=== PATIENT | male | born 1980 ===

== ENCOUNTER 2024-02-10 23:17 | Inpatient (IN) | payer OTHER ==
[~2024-02-10] VITALS: Ht 175.3 cm; Wt 106.8 kg
[2024-02-10 23:54] LABS: COVID AG,FIA SOURCE NASAL SWAB
[2024-02-11 00:06] LABS: ANION GAP 16 mmol/L (8-16); BASOPHILS % (AUTO) 1.2 % (0.0-2.0); CARBON DIOXIDE 27 mmol/L (22-29); CHLORIDE 100 mmol/L (98-107); CREATININE 1.34 mg/dL (0.60-1.30); EOSINOPHILS % (AUTO) 0.4 % (1.0-6.0); GLUCOSE,RANDOM 88 mg/dL (70-110); HEMATOCRIT 45.7 % (41-53); HEMOGLOBIN 15.1 g/dL (13.5-17.5); LYMPHOCYTES # (AUTO) 2.5 K/uL (1.0-4.8); LYMPHOCYTES % (AUTO) 27.1 % (22.0-44.0); MEAN CORPUSCULAR VOLUME 79 fL (80-100); MONOCYTES # (AUTO) 1.1 K/uL (0.1-1.0); MONOCYTES % (AUTO) 11.6 % (2.0-9.0); NEUTROPHILS # (AUTO) 5.5 K/uL (1.8-7.7); NEUTROPHILS % (AUTO) 59.7 % (40.0-70.0); PLATELET COUNT (AUTO) 215 K/uL (150-450); POTASSIUM 3.8 mmol/L (3.5-5.1); RED BLOOD CELL COUNT(AUTO) 5.81 MIL/uL (4.50-5.90); RED CELL DISTRIBUTION WIDTH 16.1 % (11.5-14.5); SODIUM SERUM 143 mmol/L (136-145); UREA NITROGEN, BLOOD 47 mg/dL (7-18); WHITE BLOOD COUNT (AUTO) 9.2 K/uL (4.5-11.0)
[2024-02-11 00:07] LABS: CALCIUM, TOTAL 9.3 mg/dL (8.8-10.5); GLOMERULAR FILTR. RATE CALC 58 mL/min (>60)
[2024-02-11 00:14] LABS: SARS-COV2 (COVID) ANTIGEN,FIA Negative (Negative)
[2024-02-11 00:21] LABS: ALCOHOL, BLOOD (SERUM) < 3 mg/dL (0-10)
[2024-02-11] MEDS ORDERED: ONDANSETRON HCL 4 MG/2 ML VIAL IVP PRN (00:45)
[2024-02-11 03:50] VITALS: BP 129/99; PULSE 96; RESP 18; TEMP 98.9; O2SAT 96
[2024-02-11] MEDS: DEXTROSE 5%-LACTATED RINGERS 1,000 ML IV SCH (04:40)
[2024-02-11 08:00] VITALS: BP 136/88; PULSE 108; RESP 18; TEMP 98.4; O2SAT 96
[2024-02-11] MEDS ORDERED: SODIUM CHLORIDE 0.9% 500 ML IV ONE (08:12)
[2024-02-11] MEDS: HEPARIN SODIUM,PORCINE 5,000 UNITS/ML VIAL SQ SCH (08:22)
[2024-02-11 16:21] LABS: CREATININE,URINE RANDOM 210.9 mg/dL (30.0-125.0)
[2024-02-11 16:29] LABS: ALCOHOL, URINE DRUG SCREEN NEGATIVE (NEGATIVE); AMPHET/METH SCREEN,URINE NEGATIVE (NEGATIVE); BARBITURATE SCREEN, URINE NEGATIVE (NEGATIVE); BENZODIAZEPINES SCREEN,URINE NEGATIVE (NEGATIVE); CANNABINOID SCREEN,URINE NEGATIVE (NEGATIVE); COCAINE SCREEN,URINE NEGATIVE (NEGATIVE); METHADONE SCREEN, URINE NEGATIVE (NEGATIVE); OPIATE SCREEN,URINE NEGATIVE (NEGATIVE); PHENCYCLIDINE SCREEN,URINE NEGATIVE (NEGATIVE)
[2024-02-11 20:00] VITALS: BP 131/97; PULSE 99; RESP 18; TEMP 98.4; O2SAT 95
[2024-02-12 04:00] VITALS: BP 14/87; PULSE 75; RESP 20; TEMP 98.5; O2SAT 98
[2024-02-12 07:24] LABS: BASOPHILS % (AUTO) 1.2 % (0.0-2.0); EOSINOPHILS % (AUTO) 2.2 % (1.0-6.0); HEMATOCRIT 41.7 % (41-53); HEMOGLOBIN 13.9 g/dL (13.5-17.5); LYMPHOCYTES # (AUTO) 2.2 K/uL (1.0-4.8); LYMPHOCYTES % (AUTO) 31.9 % (22.0-44.0); MEAN CORPUSCULAR HEMOGLOBIN 26.2 pg (26.0-34.0); MEAN CORPUSCULAR HGB CONC 33.4 G/dL (31.0-37.0); MEAN CORPUSCULAR VOLUME 79 fL (80-100); MONOCYTES # (AUTO) 0.7 K/uL (0.1-1.0); MONOCYTES % (AUTO) 10.5 % (2.0-9.0); NEUTROPHILS # (AUTO) 3.7 K/uL (1.8-7.7); NEUTROPHILS % (AUTO) 54.2 % (40.0-70.0); PLATELET COUNT (AUTO) 163 K/uL (150-450); RED BLOOD CELL COUNT(AUTO) 5.31 MIL/uL (4.50-5.90); WHITE BLOOD COUNT (AUTO) 6.8 K/uL (4.5-11.0)
[2024-02-12 07:28] LABS: ANION GAP 10 mmol/L (8-16); CALCIUM, TOTAL 8.9 mg/dL (8.8-10.5); CARBON DIOXIDE 28 mmol/L (22-29); CHLORIDE 102 mmol/L (98-107); CREATININE 1.16 mg/dL (0.60-1.30); GLOMERULAR FILTR. RATE CALC > 60 mL/min (>60); GLUCOSE,RANDOM 107 mg/dL (70-110); POTASSIUM 3.1 mmol/L (3.5-5.1); SODIUM SERUM 140 mmol/L (136-145); UREA NITROGEN, BLOOD 26 mg/dL (7-18)
[2024-02-12 07:37] VITALS: BP_SYST 133; BP_SYST 18; BP_DIAS 84; BP_DIAS 87; PULSE 87; RESP 20; TEMP 98.2; O2SAT 97
[2024-02-12] MEDS: POTASSIUM CHLORIDE 20 MEQ ER TABLET PO PRN (09:03)
[2024-02-12] MEDS: POTASSIUM CHL 10 MEQ/WATER 50 ML IV PRN (14:07)
[2024-02-12 16:19] VITALS: BP 138/92; PULSE 92; RESP 20; TEMP 98.5; O2SAT 95
[2024-02-12 17:55] LABS: GLUCOMETER DEV NAME(LOC) 6S.2; GLUCOSE,POINT OF CARE 75 MG/DL (70-110)
[2024-02-12 20:00] VITALS: BP 137/92; PULSE 84; RESP 18; TEMP 98.3; O2SAT 95
[2024-02-13 04:00] VITALS: BP 138/92; PULSE 91; RESP 20; TEMP 98.6; O2SAT 97
[2024-02-13 08:57] VITALS: BP 143/86; PULSE 84; RESP 20; TEMP 98.2; O2SAT 96
[2024-02-13 20:00] VITALS: BP 143/102; PULSE 76; RESP 18; TEMP 97.9; O2SAT 97
[2024-02-14 04:29] VITALS: BP 141/108; PULSE 97; RESP 19; TEMP 97.4; O2SAT 97
[2024-02-14 07:27] VITALS: BP 144/100; PULSE 92; RESP 19; TEMP 97.6; O2SAT 97
[2024-02-14] MEDS: LORazepam 2 MG/ML VIAL IM ONE (12:03)
[2024-02-14 20:20] VITALS: BP 129/95; PULSE 105; RESP 18; TEMP 99; O2SAT 97
[2024-02-14] MEDS: LORazepam 2 MG/ML VIAL IM SCH (22:13)
[2024-02-15 04:56] VITALS: BP 145/95; PULSE 96; RESP 18; TEMP 98.7; O2SAT 96
[2024-02-15 08:00] VITALS: BP 137/98; PULSE 94; RESP 18; TEMP 98.4
[2024-02-15 20:31] VITALS: PULSE 73; RESP 18; TEMP 98; O2SAT 96
[2024-02-15 21:06] VITALS: BP 133/97; PULSE 103; RESP 20; TEMP 98.7; O2SAT 96
[2024-02-16 04:29] VITALS: BP 140/93; PULSE 100; RESP 20; TEMP 98.6; O2SAT 95
[2024-02-16 05:12] VITALS: BP 147/76; PULSE 90; RESP 20; TEMP 97.8; O2SAT 94
[2024-02-16 05:20] VITALS: BP 140/93; PULSE 100; RESP 20; TEMP 98.6; O2SAT 95
[2024-02-16 08:18] VITALS: BP 138/98; PULSE 97; RESP 20; TEMP 98.8; O2SAT 95
[2024-02-16] MEDS: ACETAMINOPHEN 325 MG TABLET PO PRN (08:19)
[2024-02-16] MEDS: *CLINICAL-PERIPHERAL PARENTERAL NUTRITION DOSING CLINICAL ONE (12:16)
[2024-02-16 15:51] VITALS: BP 139/95; PULSE 94; RESP 20; TEMP 97.9; O2SAT 95
[2024-02-16 21:02] VITALS: BP 142/98; PULSE 93; RESP 20; TEMP 99; O2SAT 96
[2024-02-16] MEDS: PPN SOLUTION 1 EA in AA 4.25%/CALCIUM/LYTES/D5W 1,000 ML IV SCH (22:00)
[2024-02-17 05:16] VITALS: BP 133/105; PULSE 98; RESP 20; TEMP 97.7; O2SAT 96
[2024-02-17 08:00] VITALS: BP 141/98; PULSE 94; RESP 20; TEMP 97.9; O2SAT 96
[2024-02-17 08:06] LABS: ALANINE AMINOTRANSFERASE 75 U/L (12-78); ALKALINE PHOSPHATASE 73 U/L (46-116); ANION GAP 13 mmol/L (8-16); ASPARTATE AMINOTRANSFERASE 41 U/L (15-37); BILIRUBIN,TOTAL 0.6 mg/dL (0.1-1.0); CALCIUM, TOTAL 9.2 mg/dL (8.8-10.5); CARBON DIOXIDE 25 mmol/L (22-29); CHLORIDE 104 mmol/L (98-107); CREATININE 1.17 mg/dL (0.60-1.30); GLOMERULAR FILTR. RATE CALC > 60 mL/min (>60); GLUCOSE,RANDOM 97 mg/dL (70-110); PHOSPHORUS 3.8 mg/dL (2.5-4.9); POTASSIUM 3.9 mmol/L (3.5-5.1); SODIUM SERUM 142 mmol/L (136-145); TOTAL PROTEIN, SERUM 7.5 g/dL (6.4-8.2); UREA NITROGEN, BLOOD 22 mg/dL (7-18)
[2024-02-17] MEDS ORDERED: CALCIUM CHLORIDE 100 MG/ML 10 ML SYRINGE IVP ONE (12:00)
[2024-02-17] MEDS ORDERED: EPINEPHrine 1:10,000 [1 MG/10 ML] SYRINGE ONE ×2 (12:00→19:22)
[2024-02-17] MEDS ORDERED: DEXTROSE 50%-WATER 25 GM/50 ML SYRINGE IVP ONE ×2 (12:00→19:16)
[2024-02-17] MEDS ORDERED: PPN SOLUTION 1 EA in AA 4.25%/CALCIUM/LYTES/D5W 1,000 ML IV SCH (22:00)
[2024-02-17 22:56] LABS: GLUCOMETER DEV NAME(LOC) 6S.2; GLUCOSE,POINT OF CARE 33 MG/DL (70-110)
== END 2024-02-17 19:22 | DRG 640 ==
LOC: EMS 23:18 → EDH 02-11 01:50 → 6S 02-11 03:25 → 6N 02-16 04:58
PROVIDERS: ADMIT Internal Medicine; ATTEND Internal Medicine
PROC: GZ56ZZZ Individual Psychotherapy, Supportive (ICD-10-PCS; 2024-02-11)
PROC: 0BH17EZ Insertion of Endotracheal Airway into Trachea, Via Natural or Artificial Opening (ICD-10-PCS; principal; 2024-02-17)
PROC: 5A12012 Performance of Cardiac Output, Single, Manual (ICD-10-PCS; 2024-02-17)
DX: E86.0 Dehydration (principal); N17.0 Acute kidney failure with tubular necrosis; F20.9 Schizophrenia, unspecified; F06.1 Catatonic disorder due to known physiological condition; E87.6 Hypokalemia; I46.9 Cardiac arrest, cause unspecified; Z20.822 Contact with and (suspected) exposure to COVID-19; I10 Essential (primary) hypertension; F32.A Depression, unspecified; R00.0 Tachycardia, unspecified; F41.9 Anxiety disorder, unspecified; Z88.0 Allergy status to penicillin; Z88.2 Allergy status to sulfonamides; Z91.199 Patient's noncompliance with other medical treatment and regimen due to unspecified reason; Z88.3 Allergy status to other anti-infective agents
CPT/HCPCS: 80048; 80053; 80307; 82570; 82962; 83735; 84100; 84132; 84300; 85025; 99285; G0480; J0171; J1644; J2060; J3480; J3490; J7040